=== PATIENT | female | born 1970 | race Caucasian/White ===

== ENCOUNTER → 2023-02-18 | Outpatient (CLI) | payer OTHER ==
[~2023-02-18] MED LIST: RT-ALBUTEROL SULF 2.5 MG/3 ML PRE-MIX VIAL INH ONE
== END ==
LOC: RT 13:00
PROVIDERS: ATTEND Nurse Practitioner Family
DX: J44.9 Chronic obstructive pulmonary disease, unspecified (principal)
CPT/HCPCS: 94060; 94726; 94729